=== PATIENT | female | born 2000 | race Caucasian/White ===

== ENCOUNTER → 2022-04-08 | Outpatient (CLI) | payer OTHER | LOC: COL.RAD 14:03 | DX: R07.9 Chest pain, unspecified (principal); R79.89 Other specified abnormal findings of blood chemistry | CPT/HCPCS: Q9967 ==

== ENCOUNTER 2023-06-08 15:59 | Outpatient (CLI) | payer OTHER ==
[~2023-06-08] VITALS: Ht 170.2 cm; Wt 111.8 kg
[~2023-06-08 15:59] MED LIST: PREDNISONE20 MG PO; PROAIR HFA0.09 MG/AC IH
[2023-06-08] MEDS ORDERED: ASPIRIN 81M81 MG/TA2 PO (16:23)
[2023-06-08] MEDS ORDERED: NATURAL MAGNES200 MG PO (16:24)
[2023-06-08] MEDS ORDERED: PRENATAL ESSEN1 EACH PO (16:24)
[2023-06-08] MEDS ORDERED: LR 1,000 ML IV PRN (16:45)
[2023-06-08 16:51] VITALS: BP 128/71; PULSE 104; TEMP 98.4
[2023-06-08 16:52] LABS: COLLECTION METHOD CLEAN CATCH
--- NOTE | 2023-06-08 17:00 | NUR ---
0929 PATIENT HERE FOR COMPLAINTS OF PELVIC PRESSURE, CAME FROM HOME. EFM ON FHT 135 BABY VERY ACTIVE. SVE 0/50/-3. NO BLOOD OR LIQUID NOTED TO GLOVE. PATIENT DENIES ANY FEVER, OR PAIN WITH URINATION, AND HAS NOT BEEN SICK. VITAL SIGNS WNL.UA OBTAINED AND SENT TO LAB. DR DIAZ CALLED WITH ALL ABOVE INFORMATION.
[2023-06-08 17:03] LABS: PH 7.5 (5.0-8.5); URINE APPEARANCE CLOUDY (CLEAR/HAZY); URINE BLOOD NEGATIVE (NEGATIVE); URINE COLOR YELLOW (YELLOW); URINE GLUCOSE NEGATIVE (NEGATIVE); URINE KETONE TRACE (NEGATIVE); URINE NITRATE NEGATIVE (NEGATIVE); URINE PROTEIN(semi-quant) NEGATIVE (NEGATIVE); URINE UROBILINOGEN 0.2 E.U/dL (0.2-1.0)
[2023-06-08 17:17] VITALS: BP 118/69; PULSE 81
--- NOTE | 2023-06-08 17:19 | NUR ---
[address]50 LAB RESULTS REVIEWED BY DR DIAZ. ORDERS TO DISMISS TO HOME. ALL DISCHARGE INSTRUCTIONS GIVEN TO PATIENT WITH VERBAL UNDERSTANDING NOTED. DISMISS TO HOME
== END 2023-06-08 17:25 | disposition home or self-care (01) ==
LOC: LDRO 15:59
PROVIDERS: Obstetrics & Gynecology
DX: O99.891 Other specified diseases and conditions complicating pregnancy (principal); R10.2 Pelvic and perineal pain; Z3A.34 34 weeks gestation of pregnancy